=== PATIENT | male | born 1965 | race Caucasian/White ===

== ENCOUNTER 2016-09-29 16:40 | Emergency (ER) | payer OTHER ==
[2016-09-29 16:51] VITALS: TEMP 97.7; BMI 25.8
[2016-09-29 17:34] VITALS: BP 141/89; PULSE 82
[2016-09-29 18:02] LABS: BASOPHIL 0.7 % (0-2.0); EOSINOPHIL 1.6 % (0-4.5); MCH 31.7 pg (25.7-33.7); MCHC 34.5 g/dl (32.0-35.9); MEAN CELL VOLUME 91.9 fl (80-96); MEAN PLT VOLUME 9.4 fl (7.5-11.1); NEUTROPHILS 57.1 % (42.8-82.8); PLATELET COUNT 195 K/MM3 (134-434); WHITE BLOOD COUNT 5.5 K/mm3 (4.0-10.0)
[2016-09-29 18:24] LABS: ALBUMIN 4.2 g/dl (3.4-5.0); ANION GAP 10 (8-16); CALCIUM 8.7 mg/dL (8.5-10.1); CO2 26 mmol/L (21-32); CREATININE 0.8 mg/dL (0.7-1.3); GLUCOSE,RANDOM 90 mg/dL (74-106); SGOT/AST 15 U/L (15-37); SGPT/ALT 21 U/L (12-78)
--- NOTE | 2016-09-29 18:26 | PDOC ---
History of Present Illness <Emilee Torres - Last Filed: 09/29/16 18:33> <Vale Arthur - Last Filed: 09/30/16 03:33> - General Chief Complaint: Palpitations Stated Complaint: CHEST PAIN Time Seen by Provider: 09/29/16 16:57 - History of Present Illness Initial Comments: 09/29/16 18:33 [employer] Phones were used to obtain patient history via medical review coordinator #[id number] The patient is a 51 year old male, with a significant past medical history of hypertension (losartan 25mg and cardizem 240mg), who presents to the emergency department with heart palpitations while painting out on a ladder earlier this afternoon. He reports experiencing palpitations in the past, however, states the palpitations lasted for longer than usual today. He denies any associated chest pain. He reports taking his medications today. He reports seeing his nail sticker one month ago with no new changes to medications or exam findings. He states his brother 3 weeks ago from a myocardial infarction. He denies chest pain, shortness of breath, headache and dizziness. He denies fever, chills, nausea, vomit, diarrhea and constipation. He denies dysuria, frequency, urgency and hematuria. Allergies: NKDA Social history: denies toxic habits PCP - Dr. Shaffer Health Administrator: Dr. Fontaine (Emilee Torres) Past History <Emilee Torres - Last Filed: 09/29/16 18:33> - Past Medical History HTN: Yes - Psycho/Social/Smoking Cessation Hx Suicidal Ideation: No Smoking History: Never smoked Have you smoked in the past 12 months: No Information on smoking cessation initiated: No Hx Alcohol Use: No Drug/Substance Use Hx: No <Vale Arthur - Last Filed: 09/30/16 03:33> - Past Medical History Allergies/Adverse Reactions: Allergies Allergy/AdvReac Type Severity Reaction Status Date / Time No Known Allergies Allergy Verified 09/29/16 16:51 Home Medications: Ambulatory Orders Diltiazem HCl [Tiazac] 240 mg PO DAILY 03/02/16 Losartan Potassium 25 mg PO DAILY 03/02/16 Review of Systems - Review of Systems Able to Perform ROS?: Yes <Emilee Torres - Last Filed: 09/29/16 18:33> <Vale Arthur - Last Filed: 09/30/16 03:33> - Review of Systems Comments:: 09/29/16 18:35 CONSTITUTIONAL: Absent: fever, chills, diaphoresis, generalized weakness, malaise, loss of appetite HEENT: Absent: rhinorrhea, nasal congestion, throat pain, throat swelling, difficulty swallowing, mouth swelling, ear pain, eye pain, visual Changes CARDIOVASCULAR: (+) palpitations, Absent: chest pain, syncope, irregular heart rate, lightheadedness, peripheral edema RESPIRATORY: Absent: cough, shortness of breath, dyspnea with exertion, orthopnea, wheezing, stridor, hemoptysis GASTROINTESTINAL: Absent: abdominal pain, abdominal distension, nausea, vomiting, diarrhea, constipation, melena, hematochezia GENITOURINARY: Absent: dysuria, frequency, urgency, hesitancy, hematuria, flank pain, genital pain MUSCULOSKELETAL: Absent: myalgia, arthralgia, joint swelling SKIN: Absent: rash, itching, pallor HEMATOLOGIC/IMMUNOLOGIC: Absent: easy bleeding, easy bruising, lymphadenopathy, frequent infections ENDOCRINE: Absent: unexplained weight gain, unexplained weight loss, heat intolerance, cold intolerance NEUROLOGIC: Absent: headache, focal weakness or paresthesias, dizziness, unsteady gait, seizure, mental status changes, bladder or bowel incontinence PSYCHIATRIC: Absent: anxiety, depression, suicidal or homicidal ideation, hallucinations. ( Emilee Torres) *Physical Exam <Emilee Torres - Last Filed: 09/29/16 18:33> <Vale Arthur - Last Filed: 09/30/16 03:33> - Vital Signs Last Vital Signs Temp Pulse Resp BP Pulse Ox 97.7 F 82 16 141/89 100 09/29/16 16:48 09/29/16 17:32 09/29/16 17:32 09/29/16 17:32 09/29/16 17:32 - Physical Exam Comments: 09/29/16 18:36 GENERAL: Well developed, well nourished. Awake and alert. No acute distress. HEENT: Normocephalic, atraumatic. PERRLA, EOMI. No conjunctival pallor. Sclera are non- icteric. Moist mucous membranes. Oropharynx is clear. NECK: Supple. Full ROM. No JVD. Carotid pulses 2+ and symmetric, without bruits. No thyromegaly. No lymphadenopathy. CARDIOVASCULAR: Regular rate and rhythm. No murmurs, rubs, or gallops. Distal pulses are 2+ and symmetric. PULMONARY: No evidence of respiratory distress. Lungs clear to auscultation bilaterally. No wheezing, rales or rhonchi. ABDOMINAL: Soft. Non-tender. Non-distended. No rebound or guarding. No organomegaly. Normoactive bowel sounds. MUSCULOSKELETAL Normal range of motion at all joints. No bony deformities or tenderness. No CVA tenderness. EXTREMITIES: No cyanosis. No clubbing. No edema. No calf tenderness. SKIN: Warm and dry. Normal capillary refill. No rashes. No jaundice. NEUROLOGICAL: Alert, awake, appropriate. Cranial nerves 2-12 intact. Normoreflexic in the upper and lower extremities. Normal speech. Toes are down-going bilaterally. Gait is normal without ataxia. PSYCHIATRIC: Cooperative. Good eye contact. Appropriate mood and affect. (Emilee Torres) Heart Score/ECG Review <Emilee Torres - Last Filed: 09/29/16 18:33> <Vale Arthur - Last Filed: 09/30/16 03:33> - [place] Comment: 09/29/16 18:36 EKG was read by Dr. Arthur at 18:20 Impression: Normal Sinus rhythm (Emilee Torres) ED Treatment Course - LABORATORY CBC & Chemistry Diagram: 09/29/16 17:50 09/29/16 17:50 <Emilee Torres - Last Filed: 09/29/16 18:33> - LABORATORY CBC & Chemistry Diagram: 09/29/16 17:50 09/29/16 17:50 <Vale Arthur - Last Filed: 09/30/16 03:33> - ADDITIONAL ORDERS Additional order review: Laboratory Results 09/29/16 09/29/16 22:20 17:50 Sodium 136 Potassium 3.5 Chloride 100 Carbon Dioxide 26 Anion Gap 10 BUN 12 Creatinine 0.8 Creat Clearance w eGFR > 60 Random Glucose 90 Calcium 8.7 Total Bilirubin 0.5 D AST 15 ALT 21 Alkaline Phosphatase 91 Creatine Kinase 113 133 Troponin I < 0.02 < 0.02 Total Protein 7.8 Albumin 4.2 09/29/16 17:50 RBC 4.33 MCV 91.9 MCHC 34.5 RDW 12.0 MPV 9.4 Neutrophils % 57.1 Lymphocytes % 33.9 Monocytes % 6.7 Eosinophils % 1.6 Basophils % 0.7 - RADIOLOGY Radiology Studies Ordered: Category Date Time Status CHEST X-RAY PORTABLE* [RAD] Stat Radiology 09/29/16 18:26 Taken - Medications Given in the ED: ED Medications Discontinued Medications Generic Name Dose Route Start Last Admin Trade Name Jania PRN Reason Stop Dose Admin Diltiazem HCl 60 mg 09/29/16 21:11 09/29/16 21:16 Cardizem - PO 09/29/16 21:12 60 mg ONCE ONE Administration Medical Decision Making <Emilee Torres - Last Filed: 09/29/16 18:33> <Vale Arthur - Last Filed: 09/30/16 03:33> - Medical Decision Making 09/30/16 03:32 51 yo ma;le p/w palpitations today pmh HTN -sees Dr Kyle pt has 2 sets neg cardiac enzymes no ischemia in ekg d.c home (Vale Arthur) *DC/Admit/Observation/Transfer <Emilee Torres - Last Filed: 09/29/16 18:33> <Vale Arthur - Last Filed: 09/30/16 03:33> Diagnosis at time of Disposition: Palpitations High blood pressure Qualifiers: Hypertension type: essential hypertension Qualified Code(s): I10 - Essential ( primary) hypertension - Discharge Dispostion Disposition: HOME Condition at time of disposition: Stable - Referrals Referrals: Gosia Shaffer [Primary Care Provider] - - Patient Instructions Printed Discharge Instructions: DI for Palpitations, DI for High Blood Pressure Additional Instructions: please follow up with your nail sticker for further evaluation - Attestations Scribe Attestion: 09/29/16 18:36 Documentation prepared by Emilee Torres, acting as director of medical staff services for Vale Arthur MD (Emilee Torres)
[2016-09-29 18:28] LABS: ALK PHOS 91 U/L (45-117); BILIRUBIN,TOTAL 0.5 mg/dL (0.2-1.0); TOT PROT 7.8 g/dl (6.4-8.2); TROPONIN I < 0.02 ng/ml (0.00-0.05)
[2016-09-29] MEDS ORDERED: dilTIAZem HCL 60 MG TABLET (FP) PO ONE (21:11)
[2016-09-29] MEDS ORDERED: dilTIAZem HCL 60 MG TABLET (FP) ONE (21:13)
[2016-09-29 22:58] LABS: TROPONIN I < 0.02 ng/ml (0.00-0.05)
--- NOTE | 2016-09-30 16:20 | EKG ---
Test Reason : Blood Pressure : / mmHG Vent. Rate : 080 BPM Atrial Rate : 080 BPM P-R Int : 164 ms QRS Dur : 082 ms QT Int : 344 ms P-R-T Axes : 061 -01 027 degrees QTc Int : 396 ms NORMAL SINUS RHYTHM NORMAL ECG WHEN COMPARED WITH ECG OF 02-MAR-2016 14:39, NO SIGNIFICANT CHANGE WAS FOUND Confirmed by JOSSUE ARITA MD ([id number]) on 09/30/2016 4:20:43 PM Referred By: Confirmed By:JOSSUE ARITA MD
== END 2016-09-29 23:22 | disposition home or self-care (01) ==
LOC: JER 16:40
DX: I10 Essential (primary) hypertension (principal); R07.89 Other chest pain; R00.2 Palpitations
CPT/HCPCS: 36415; 71010-TC; 80053; 82550; 84484; 85025; 93005; 93010; 99284-25

== ENCOUNTER 2022-12-11 11:57 | Emergency (ER) | payer OTHER ==
[2022-12-11 12:08] VITALS: BP 142/79; PULSE 82; RESP 18; TEMP 98.8; BMI 25.8
[2022-12-11] MEDS ORDERED: KETOROLAC TROMETHAMINE 30 MG/1 ML VIAL IM ONE (14:06)
[2022-12-11] MEDS ORDERED: METHOCARBAMOL 500 MG TABLET PO ONE (14:06)
[2022-12-11] MEDS ORDERED: LIDOCAINE 5% TOPICAL PATCH TP ONE (14:06)
[2022-12-11] MEDS ORDERED: LIDOCAINE 5% TOPICAL PATCH ONE (14:13)
[2022-12-11] MEDS ORDERED: METHOCARBAMOL 500 MG TABLET ONE (14:13)
[2022-12-11] MEDS ORDERED: KETOROLAC TROMETHAMINE 30 MG/1 ML VIAL ONE (14:13)
[2022-12-11 14:37] LABS: URINE APPEARANCE CLEAR; URINE BILIRUBIN NEGATIVE (NEGATIVE); URINE COLOR YELLOW; URINE GLUCOSE (UA) NEGATIVE (NEGATIVE); URINE KETONE NEGATIVE (NEGATIVE); URINE LEUK ESTERASE NEGATIVE (NEGATIVE); URINE NITRITE NEGATIVE (NEGATIVE); URINE PROTEIN NEGATIVE (NEGATIVE); URINE UROBILINOGEN 0.2 mg/dL (0.2-1.0)
[2022-12-11] MEDS ORDERED: LIDOCAINE PATCH REMOVAL MC SCH (22:00)
== END 2022-12-11 16:29 | disposition home or self-care (01) ==
LOC: JER 11:57
PROC: 3E0233Z Introduction of Anti-inflammatory into Muscle, Percutaneous Approach (ICD-10-PCS; principal; 2022-12-11)
DX: M54.50 Low back pain, unspecified (principal); R10.9 Unspecified abdominal pain; G89.29 Other chronic pain
CPT/HCPCS: 72100-TC-FY; 81003; 87086; 99284-25

== ENCOUNTER 2023-01-15 23:17 | Emergency (ER) | payer OTHER ==
[2023-01-15 23:23] VITALS: BP 167/83; PULSE 83; RESP 18; TEMP 98.1; BMI 25.8
== END 2023-01-15 23:56 | disposition home or self-care (01) ==
LOC: JER 23:17
DX: I10 Essential (primary) hypertension (principal)
CPT/HCPCS: 93005; 93010; 99283-25